=== PATIENT | female | born 1995 | race Caucasian/White ===

== ENCOUNTER → 2023-11-06 15:38 | Outpatient (CLI) | payer OTHER, SELFPAY ==
[2023-11-06 16:31] LABS: Hemoglobin A1C% w Est Avg Glu 5.3 % (4.0-6.0)
[2023-11-06 16:50] LABS: Alanine Aminotransferase 22 IU/L (<35); Albumin 4.1 g/dL (3.5-5.0); Albumin Globulin Ratio 1.2 (1.0-2.8); Alkaline Phosphatase 82 U/L (38-126); Aspartate Aminotransferase 18 IU/L (14-36); BUN Creatinine Ratio 10.5 (6-22); Bilirubin Total 0.6 mg/dL (0.2-1.3); Blood Urea Nitrogen 6 mg/dL (7-17); Carbon Dioxide 24 mmol/L (22-32); Chloride 104 mmol/L (98-107); Estimated Glomerular Filt Rate > 60 mL/min (>60); Globulin 3.3 g/dL (1.7-4.1); Glucose 88 mg/dL (70-100); HEMOLYSIS < 15 (0-50); Potassium 3.7 mmol/L (3.4-5.1); Sodium 135 mmol/L (137-145); Total Protein 7.4 g/dL (6.3-8.2)
[2023-11-06 19:21] LABS: Urine N gonorrhoeae NOT DETECTED
[2023-11-06 19:32] LABS: Urine Chlamydia NOT DETECTED
[2023-11-07 07:26] LABS: Miscellaneous to LabCorp NATERA KIT
[2023-11-07 15:57] LABS: Creatinine Urine Random 200.2 mg/dL; Protein (Total) Urine Random 11 mg/dL (0-12); Protein Creatinine Ratio Urine 0.05 GRAM/24H
== END ==
PROVIDERS: Referring Provider Student in an Organized Health Care Education/Training Program; Visit Provider Student in an Organized Health Care Education/Training Program
DX: O99.210 Obesity complicating pregnancy, unspecified trimester (principal); Z3A.09 9 weeks gestation of pregnancy
CPT/HCPCS: 36415; 80053; 82570; 83036; 84156; 87491; 87591

== ENCOUNTER → 2023-11-19 14:51 | Outpatient (CLI) | payer OTHER, SELFPAY ==
[2023-11-19 15:42] LABS: Appearance Urine UA SL CLOUDY; Bilirubin Urine UA NEGATIVE (NEGATIVE); Color Urine UA YELLOW; Glucose Urine UA NEGATIVE (Negative); Ketones Urine UA 2+ (NEGATIVE); Leukocyte Esterase Urine UA 3+ (NEGATIVE); Nitrite Urine UA NEGATIVE (Negative); Occult Blood Urine UA NEGATIVE (Negative); Protein Urine UA NEGATIVE (Negative); Urobilinogen Urine UA 0.2 E.U./dL (0.2); pH Urine UA 6.5 (4.5-8.0)
[2023-11-19 15:55] LABS: Bacteria Urine Few (2-10); RBC Urine 0-1/HPF (0-5/HPF); Squamous Epithelial Cell Urine >30 /HPF (0-5/HPF); WBC Urine 5-10/HPF (0-5/HPF)
[2023-11-19 15:56] LABS: Culture Indicated Urine Specimen Cultured
[2023-11-19 16:38] LABS: Add Manual Diff / Slide Review NO; Basophils Absolute Auto 0 /uL (0-100); Basophils Percent Auto 0.4 % (0-2); Eosinophils Absolute Auto 100 /uL (0-450); Hematocrit 40.7 % (36-46); Hemoglobin 13.6 g/dL (12.0-16.0); Lymphocytes Absolute Auto 3800 /uL (1100-4500); Lymphocytes Percent Auto 31.9 % (25-40); Mean Corpuscular HGB Conc 33.5 % (30-36); Mean Corpuscular Hemoglobin 26.3 PG (26-34); Mean Corpuscular Volume 78.5 fL (80-100); Monocytes Absolute Auto 700 /uL (0-900); Monocytes Percent Auto 6.3 % (3-14); Neutrophils Absolute Auto 7100 /uL (1500-7000); Neutrophils Percent Auto 60.4 % (50-75); Platelet Count 343 X10^3/uL (150-400); Red Blood Cell Count 5.18 X10^6/uL (4.0-5.2); Red Cell Distribution Width 14.5 % (11.6-14.8); White Blood Cell Count 11.8 X10^3/uL (4.5-11.0)
[2023-11-20 04:50] LABS: RPR Screen Non Reactive (Non Reactive)
[2023-11-21 08:36] LABS: Varicella IgG Antibody 1862 index (Immune >165)
[2023-11-21 18:59] LABS: Hepatitis B Surface Antigen NEGATIVE s/c (NEGATIVE)
[2023-11-21 19:22] LABS: HIV 1 & 2 Ab/Ag 4th Gen Combo NEGATIVE (NEGATIVE)
[2023-11-22 18:23] LABS: Hep C Virus Ab w/Reflex Quant NEGATIVE s/c (NEGATIVE)
== END ==
PROVIDERS: Referring Provider Student in an Organized Health Care Education/Training Program; Visit Provider Student in an Organized Health Care Education/Training Program
DX: Z34.00 Encounter for supervision of normal first pregnancy, unspecified trimester (principal); Z34.91 Encounter for supervision of normal pregnancy, unspecified, first trimester
CPT/HCPCS: 36415; 80055; 81001; 86787; 86803; 86850; 86900; 86901; 87086; 87389

== ENCOUNTER → 2024-01-15 13:47 | Outpatient (CLI) | payer OTHER, SELFPAY ==
[2024-01-17 22:36] LABS: AFP Value 26.1 ng/mL (.); Gest Age on Col Date 19.1 weeks (.); Insulin Dep Diabetes No (.); OSBR Risk 1IN 10000 (.); Results Report (.); Test Results *Screen Negative* (.)
== END ==
PROVIDERS: Referring Provider Student in an Organized Health Care Education/Training Program; Visit Provider Student in an Organized Health Care Education/Training Program
DX: Z34.02 Encounter for supervision of normal first pregnancy, second trimester (principal)
CPT/HCPCS: 36415; 82105

== ENCOUNTER → 2024-01-23 12:50 | Outpatient (CLI) | payer OTHER, SELFPAY ==
--- NOTE | 2024-01-23 12:51 | DI.US.S_ITS ---
PROCEDURE: US OB >= 14 WEEKS FETUS INDICATIONS: 20 week anatomy scan OUTSIDE/PRIOR DATING DATA: Last menstrual period (LMP): 09/03/2023 LMP-based estimated date of delivery (USHA): 06/09/2024. First dating scan (date and location): 11/06/2023. Estimated date of delivery (USHA) from first dating scan: 06/11/2024. The calculations are made using the clinical USHA of 06/09/2024. TECHNIQUE: Real-time scanning was performed of the fetus, with image documentation and biometric measurements. Endovaginal scanning: Not performed COMPARISON: [facility], , OB >= 14 WEEKS FETUS, 12/18/2023, 15:17. FINDINGS: General: A single living intrauterine gestation is present. Presentation: Vertex. Placenta: Placental position is anterior , without previa. Amniotic fluid index: 14.8 cm, normal range is 5-24 cm. Single deepest vertical pocket is 5.6 cm. heart rate: 130 beats per minute. Maternal cervical canal: 3.4 cm long. Normal lower limit is 2.5 cm. biometrics: Biparietal diameter: 5.1 cm, 21 weeks 2 days Head circumference: 19.7 cm, 21 weeks 6 days Abdominal circumference: 16.7 cm, 21 weeks 5 days Femur length: 3.5 cm, 21 weeks 0 days Clinically estimated gestational age: 20 weeks 2 days Composite gestational age from present scan: 21 weeks 3 days Estimated weight and percentile: 424 g, 95th percentile Anatomic survey: Neuro: Ventricles are non-dilated at less than 10 mm. Cisterna magna is normal at 3-11 mm. Cerebellum is normal in size and morphology. Nuchal skin fold: Normal at less than 6 mm between 14-21 weeks gestational age. Face: Nose and lips, facial profile are normal. Spine: No evidence for spina bifida. Heart: 4-chambered heart is present, with normal ventricular outflow tracts. Diaphragm: Diaphragm is intact. Stomach: Left-sided stomach is present. Kidneys: No hydronephrosis. Normal is less than 5 mm in 2nd trimester, less than 7 mm in 3rd trimester. Cord: 3-vessel cord has orthotopic insertion. Bladder: Normal in size. Extremities: All 4 extremities identified. IMPRESSION: 1. Single live intrauterine consistent with 21 weeks and 3 days. 2. Normal anatomic survey. 3. Estimated weight is in the 95th percentile, large for gestational age. Recommend attention on follow-up. We strive to produce accurate, complete, and clear reports of imaging services. To assist us in improving patient care, this report was composed using standard report templates and voice recognition software. Therefore, it may contain abnormal punctuation, insertions and/or omissions. Occasional wrong-word or sound-alike substitutions may occur. Though we review the report and make efforts to correct it, we do recommend that the report be read carefully in proper context to recognize any text inaccuracies. Dictated by: Jordi Pearce M.D. on 01/28/2024 at 14:15 Approved by: Jordi Pearce M.D. on 01/28/2024 at 14:18
== END ==
PROVIDERS: Referring Provider Student in an Organized Health Care Education/Training Program; Visit Provider Student in an Organized Health Care Education/Training Program
DX: Z34.02 Encounter for supervision of normal first pregnancy, second trimester (principal); Z3A.21 21 weeks gestation of pregnancy
CPT/HCPCS: 76811

== ENCOUNTER → 2024-02-21 13:50 | Outpatient (CLI) | payer OTHER, SELFPAY ==
[2024-02-21 15:42] LABS: Hematocrit 34.5 % (36-46); Hemoglobin 11.5 g/dL (12.0-16.0)
[2024-02-21 16:34] LABS: GTT (PREG) 1 Hour PP 50gm Dose 149 mg/dL (76-139)
== END ==
PROVIDERS: Referring Provider Student in an Organized Health Care Education/Training Program; Visit Provider Student in an Organized Health Care Education/Training Program
DX: Z34.02 Encounter for supervision of normal first pregnancy, second trimester (principal); Z3A.26 26 weeks gestation of pregnancy
CPT/HCPCS: 36415; 82950; 85014; 85018

== ENCOUNTER → 2024-03-12 08:02 | Outpatient (CLI) | payer OTHER, SELFPAY ==
[2024-03-12 10:40] LABS: Glucose 1 Hour Gest 156 mg/dL (76-180)
[2024-03-12 11:24] LABS: Glucose 2 Hour Gest 144 mg/dL (76-155)
[2024-03-12 11:33] LABS: Glucose Tol Interp,Gestational INTERPRETATION
[2024-03-12 11:39] LABS: Glucose Fasting Gestational 81 mg/dL (76-95)
[2024-03-12 12:17] LABS: Glucose 3 Hour Gest 88 mg/dL (76-140)
== END ==
LOC: LAB 08:03
PROVIDERS: Referring Provider Student in an Organized Health Care Education/Training Program; Visit Provider Student in an Organized Health Care Education/Training Program
DX: O99.810 Abnormal glucose complicating pregnancy (principal)
CPT/HCPCS: 82951; 82952

== ENCOUNTER → 2024-04-14 10:52 | Outpatient (CLI) | payer OTHER, SELFPAY ==
--- NOTE | 2024-04-14 10:53 | DI.US.S_ITS ---
PROCEDURE: US OB FOLLOW UP INDICATIONS: measuring size greater than dates; re-evaluate growth OUTSIDE/PRIOR DATING DATA: Last menstrual period (LMP): 09/03/2023. LMP-based estimated date of delivery (USHA): 06/09/2024. First dating scan (date and location): 11/06/2023. Estimated date of delivery (USHA) from first dating scan: 06/11/2024. The calculations are made using the clinical USHA of 06/09/2024. TECHNIQUE: Real-time scanning was performed of the fetus, with image documentation and biometric measurements. Endovaginal scanning: Not performed. COMPARISON: [facility], OB >= 14 WEEKS FETUS, 01/23/2024, 13:01. FINDINGS: General: A single living intrauterine gestation is present. Presentation: Vertex. Placenta: Placental position is anterior, without previa. Amniotic fluid index: 15.7 cm, normal range is 5-24 cm. Single deepest vertical pocket is 5.7 cm. heart rate: 128 beats per minute. Maternal cervical canal: 4.9 cm long. Normal lower limit is 2.5 cm. biometrics: Biparietal diameter: 8.5 cm, 34 weeks 2 days. 94th percentile Head circumference: 30.8 cm, 34 weeks 3 days. 76 percentile Abdominal circumference: 31.6 cm, 35 weeks 4 days. Cannot calculate. Femur length: 6.4 cm, 33 weeks 0 days. 64 percentile Clinically estimated gestational age: 32 weeks 0 days Composite gestational age from present scan: 34 weeks 2 days Estimated weight and percentile: 2466 g, 98th percentile. IMPRESSION: 1. [place] living intrauterine at 34 weeks 2 days based on today's ultrasound. Fetus is in the 98th percentile for weight. This is concordant with the prior dating +/-3 weeks. 2. Normal placenta and amniotic fluid. We strive to produce accurate, complete, and clear reports of imaging services. To assist us in improving patient care, this report was composed using standard report templates and voice recognition software. Therefore, it may contain abnormal punctuation, insertions and/or omissions. Occasional wrong-word or sound-alike substitutions may occur. Though we review the report and make efforts to correct it, we do recommend that the report be read carefully in proper context to recognize any text inaccuracies. Dictated by: Mesfin Sethi M.D. on 04/14/2024 at 14:49 Approved by: Mesfin Sethi M.D. on 04/14/2024 at 14:53
== END ==
PROVIDERS: Referring Provider Student in an Organized Health Care Education/Training Program; Visit Provider Student in an Organized Health Care Education/Training Program
DX: O26.843 Uterine size-date discrepancy, third trimester (principal); O99.213 Obesity complicating pregnancy, third trimester; Z3A.34 34 weeks gestation of pregnancy
CPT/HCPCS: 76816

== ENCOUNTER → 2024-05-11 11:14 | Outpatient (CLI) | payer OTHER, SELFPAY ==
--- NOTE | 2024-05-11 11:16 | DI.US.S_ITS ---
PROCEDURE: US OB FOLLOW UP INDICATIONS: follow-up growth at 36 weeks EGA OUTSIDE/PRIOR DATING DATA: Last menstrual period (LMP): 09/03/2023. LMP-based estimated date of delivery (USHA): 06/09/2024. First dating scan (date and location): 11/06/2023. Estimated date of delivery (USHA) from first dating scan: 06/11/2024. The calculations are made using the clinical USHA of 06/09/2024. TECHNIQUE: Real-time scanning was performed of the fetus, with image documentation. COMPARISON: [facility], OB FOLLOW UP, 04/14/2024, 11:04. FINDINGS: A single living intrauterine gestation is present. Presentation: Vertex. Placenta: Placental position is anterior, without previa. Amniotic fluid index: 11.2 cm, normal range is 5-24 cm. Single deepest vertical pocket is 4.6 cm. heart rate: 131 beats per minute. Maternal cervical canal: 4.6 cm long. Normal lower limit is 2.5 cm. Clinically estimated gestational age: 35 weeks 6 days Estimated gestational age from initial scan: 38 weeks 3 days BPD: 9.3 cm 37 weeks 6 days HC: 34 weeks 5 days 39 weeks 6 days AC: 34.5 cm 38 weeks 3 days FL: 7.4 cm 37 weeks 5 days Estimated weight 3407 2 g, 97th percentile, compared to 98th percentile.. IMPRESSION: Single live intrauterine with gestational age today of 38 weeks 3 days. weight remains at the 97th percentile consistent with macrosomia. Dictated by: Kim Colón M.D. on 05/11/2024 at 16:08 Approved by: Kim Colón M.D. on 05/11/2024 at 16:10
== END ==
PROVIDERS: Referring Provider Student in an Organized Health Care Education/Training Program; Visit Provider Student in an Organized Health Care Education/Training Program
DX: O36.63X0 Maternal care for excessive fetal growth, third trimester, not applicable or unspecified (principal); Z3A.38 38 weeks gestation of pregnancy
CPT/HCPCS: 76816

== ENCOUNTER → 2024-05-13 11:30 | Outpatient (CLI) | payer OTHER, SELFPAY ==
[2024-05-14 08:13] LABS: Strep Grp B PCR NEG for Grp B Strep
== END ==
PROVIDERS: Visit Provider Obstetrics & Gynecology
DX: Z34.03 Encounter for supervision of normal first pregnancy, third trimester (principal); Z3A.36 36 weeks gestation of pregnancy
CPT/HCPCS: 87653

== ENCOUNTER 2024-05-13 11:50 | Outpatient (CLI) | payer OTHER, SELFPAY | END 2024-05-13 12:24 | disposition home or self-care (01) | LOC: OB 05-14 08:21 | PROVIDERS: Referring Provider Student in an Organized Health Care Education/Training Program; Visit Provider Student in an Organized Health Care Education/Training Program | DX: O99.213 Obesity complicating pregnancy, third trimester (principal); O36.63X0 Maternal care for excessive fetal growth, third trimester, not applicable or unspecified; E66.9 Obesity, unspecified; O47.03 False labor before 37 completed weeks of gestation, third trimester; Z3A.35 35 weeks gestation of pregnancy | CPT/HCPCS: 59025; 87653; G0378; G0379 ==

== ENCOUNTER 2024-05-16 14:08 | Outpatient (CLI) | payer OTHER, SELFPAY | END 2024-05-16 15:10 | disposition home or self-care (01) | LOC: LABOR 15:07 → OB 05-18 06:12 | PROVIDERS: Referring Provider Student in an Organized Health Care Education/Training Program; Visit Provider Student in an Organized Health Care Education/Training Program | DX: O36.63X0 Maternal care for excessive fetal growth, third trimester, not applicable or unspecified (principal); O99.213 Obesity complicating pregnancy, third trimester; E66.9 Obesity, unspecified; Z3A.36 36 weeks gestation of pregnancy | CPT/HCPCS: 59025; G0378; G0379 ==

== ENCOUNTER 2024-05-19 11:16 | Observation (INO) | payer OTHER, SELFPAY ==
--- NOTE | 2024-05-19 14:20 | PM.OBTRLD ---
Visit Information Visit Information Date of evaluation: 05/19/24 Primary OB Provider: Martha Oliva Reason for Evaluation: Yes non-stress test Vital Signs Vital Signs: vitals in clinic were within normal limits [facility] Medical History (Updated 04/07/24 @ 17:04 by aMrtha Oliva DO) Anxiety Migraine without aura Leg fracture (~2004) Lipoma (~2019) Surgical History (Updated 10/23/23 @ 11:07 by Yulissa Rose, RN) History of tonsillectomy [place] teeth extracted Family History (Updated 10/23/23 @ 11:17 by Yulissa Rose, RN) Mother Recurrent strokes Skin cancer Heart murmur Hyperlipidemia Depression Diverticulitis Grandmother Skin cancer Breast cancer Bladder cancer Uterine cancer Lung cancer Smoker H/O carotid endarterectomy Grandfather Diabetes mellitus Colon cancer Father Hyperlipidemia Depression Anxiety Grandmother Stomach cancer Smoker Depression Anxiety Sister Congenital heart defect Grandfather Anxiety Depression Social History marital status: unmarried,living together household members: significant other lives independently: Yes caregiver/support person: No housing: apartment pets and animals: No education level: high school occupational status: employed (active duty [employer] current occupational 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 ) special diane needs: No travel history: over 6 months ago seatbelt use: always water heater temp set < 120 deg: Yes working smoke detector in home: Yes fire extinguisher in home: No (one not far from front door outside) carbon monox detector in home: Yes firearms in home: Yes firearms unloaded and locked: Yes do you feel safe at home: Yes Smoking Status: Former smoker (quit cigarettes 2020, quit vaping when she learned she was ) second hand exposure: No (s/o also quit when pt found out about ) alcohol intake: former (occasionally when not ) substance use type: does not use during the past year weight has: remained stable well-balanced diet: rarely or never daily servings fruits/ve-1 caffeine: Yes (aware of 200mg limit) Type(s) of exercise: weight lifting Evaluation Evaluation Baseline heart rate: 140 Variability: Moderate (11-25) monitor accelerations: Present Monitor Decelerations: Absent Category of Tracing: Reactive Diagnosis, Plan/Disposition Final Diagnosis (1) Obesity affecting : Status: Acute Plan/Disposition Plan: F/u in clinic as scheduled OB Disposition: home
== END 2024-05-19 12:04 | disposition home or self-care (01) ==
PROVIDERS: Admitting Provider Student in an Organized Health Care Education/Training Program; Referring Provider Student in an Organized Health Care Education/Training Program; Visit Provider Student in an Organized Health Care Education/Training Program
DX: O99.213 Obesity complicating pregnancy, third trimester (principal); E66.9 Obesity, unspecified; Z3A.37 37 weeks gestation of pregnancy
CPT/HCPCS: 59025; G0378; G0379

== ENCOUNTER → 2024-05-20 13:25 | Outpatient (CLI) | payer OTHER, SELFPAY ==
--- NOTE | 2024-05-20 13:26 | DI.US.S_ITS ---
PROCEDURE: US OB LIMITED INDICATIONS: INTERVAL GROWTH, LGA OUTSIDE/PRIOR DATING DATA: Last menstrual period (LMP): 09/03/2023. LMP-based estimated date of delivery (USHA): 06/09/2024. First dating scan (date and location): 11/06/2023. Estimated date of delivery (USHA) from first dating scan: 06/11/2024. The calculations are made using the clinical USHA of 06/09/2024. TECHNIQUE: Real-time scanning was performed of the fetus, with image documentation. COMPARISON: [facility], , OB FOLLOW UP, 05/11/2024, 11:28. FINDINGS: A single living intrauterine gestation is present. Presentation: Vertex. Placenta: Placental position is anterior fundal, without previa. Amniotic fluid index: 9.1 cm, normal range is 5-24 cm. Single deepest vertical pocket is 5.4 cm. heart rate: 124 beats per minute. Maternal cervical canal: Not assessed BPD: 9.6 cm 39 weeks 0 days HC: 34.6 cm 40 weeks 0 days AC: 39.4 cm 41 weeks 2 days FL: 7.5 cm 38 weeks 3 days Clinically estimated gestational age: 37 weeks 1 day Estimated gestational age from initial scan: 39 weeks 5 days Estimated weight 4046 g 99th percentile IMPRESSION: Single live intrauterine with gestational age of 39 weeks 5 days. weight is at the 99th percentile remaining consistent with macrosomia. Dictated by: Kim Colón M.D. on 05/20/2024 at 16:29 Approved by: Kim Colón M.D. on 05/20/2024 at 16:31
== END ==
PROVIDERS: Referring Provider Obstetrics & Gynecology; Visit Provider Obstetrics & Gynecology
DX: O26.849 Uterine size-date discrepancy, unspecified trimester (principal); Z3A.39 39 weeks gestation of pregnancy
CPT/HCPCS: 76815

== ENCOUNTER 2024-05-22 13:55 | Outpatient (CLI) | payer OTHER, SELFPAY ==
--- NOTE | 2024-05-22 14:53 | P.TNLD_ITS ---
Visit Information Visit Information Date of evaluation: 05/22/24 Primary OB Provider: Martha Oliva On-call OB Provider: Wen Mcdonald Reason for Evaluation: Yes non-stress test non-stress test reason: other (Obesity, macrosomia) Vital Signs Vital Signs: Blood pressure 119/65, pulse of 85, temperature 35.9? [facility] Medical History (Updated 05/22/24 @ 14:54 by Wen Mcdonald MD) Anxiety Migraine without aura Leg fracture (~2004) Lipoma (~2018) Surgical History (Updated 10/23/23 @ 11:07 by Yulissa Rose, RN) History of tonsillectomy [place] teeth extracted Family History (Updated 10/23/23 @ 11:17 by Yulissa Rose, RN) Mother Recurrent strokes Skin cancer Heart murmur Hyperlipidemia Depression Diverticulitis Grandmother Skin cancer Breast cancer Bladder cancer Uterine cancer Lung cancer Smoker H/O carotid endarterectomy Grandfather Diabetes mellitus Colon cancer Father Hyperlipidemia Depression Anxiety Grandmother Stomach cancer Smoker Depression Anxiety Sister Congenital heart defect Grandfather Anxiety Depression Social History marital status: unmarried,living together household members: significant other lives independently: Yes caregiver/support person: No housing: apartment pets and animals: No education level: high school occupational status: employed (active duty [employer]) current occupational 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 ) special diane needs: No travel history: over 6 months ago seatbelt use: always water heater temp set < 120 deg: Yes working smoke detector in home: Yes fire extinguisher in home: No (one not far from front door outside) carbon monox detector in home: Yes firearms in home: Yes firearms unloaded and locked: Yes do you feel safe at home: Yes Smoking Status: Former smoker (quit cigarettes 2020, quit vaping when she learned she was ) second hand exposure: No (s/o also quit when pt found out about ) alcohol intake: former (occasionally when not ) substance use type: does not use during the past year weight has: remained stable well-balanced diet: rarely or never daily servings fruits/ve-1 caffeine: Yes (aware of 200mg limit) Type(s) of exercise: weight lifting Evaluation Evaluation Baseline heart rate: 125 Variability: Moderate (11-25) monitor accelerations: Present Monitor Decelerations: Absent Category of Tracing: Reactive Status: Category l Diagnosis, Plan/Disposition Final Diagnosis (1) macrosomia during in third trimester: Status: Acute (2) 37 weeks gestation of : Status: Acute (3) Obesity affecting : Status: Acute Plan/Disposition Plan: Reactive nonstress test. Continue routine OB visits and weekly nonstress test OB Disposition: home
== END 2024-05-22 14:55 | disposition home or self-care (01) ==
LOC: LABOR 14:45 → OB 05-25 10:25
PROVIDERS: Referring Provider Student in an Organized Health Care Education/Training Program; Visit Provider Student in an Organized Health Care Education/Training Program
DX: O36.63X0 Maternal care for excessive fetal growth, third trimester, not applicable or unspecified (principal); O99.213 Obesity complicating pregnancy, third trimester; E66.9 Obesity, unspecified; Z3A.37 37 weeks gestation of pregnancy
CPT/HCPCS: 59025; G0378; G0379

== ENCOUNTER 2024-05-28 12:25 | Outpatient (CLI) | payer OTHER, SELFPAY | END 2024-05-28 13:04 | disposition home or self-care (01) | LOC: OB 06-01 06:46 | PROVIDERS: PCP Family Medicine; Referring Provider Student in an Organized Health Care Education/Training Program; Visit Provider Student in an Organized Health Care Education/Training Program | DX: O47.1 False labor at or after 37 completed weeks of gestation (principal); O36.63X0 Maternal care for excessive fetal growth, third trimester, not applicable or unspecified; Z3A.38 38 weeks gestation of pregnancy | CPT/HCPCS: 59025; G0378; G0379 ==

== ENCOUNTER 2024-06-02 11:46 | Outpatient (CLI) | payer OTHER, SELFPAY ==
--- NOTE | 2024-06-02 12:43 | PM.OBTRLD ---
Visit Information Visit Information Date of evaluation: 06/02/24 Primary OB Provider: Martha Oliva Reason for Evaluation: Yes non-stress test Vital Signs Vital Signs: vitals reviewed in OBIX, within normal parameters [facility] Medical History (Updated 05/28/24 @ 11:54 by Martha Oliva DO) Anxiety Migraine without aura Leg fracture (~2005) Lipoma (~2019) Surgical History (Updated 10/23/23 @ 11:07 by Yulissa Rose, RN) History of tonsillectomy [place] teeth extracted Family History (Updated 10/23/23 @ 11:17 by Yulissa Rose, RN) Mother Recurrent strokes Skin cancer Heart murmur Hyperlipidemia Depression Diverticulitis Grandmother Skin cancer Breast cancer Bladder cancer Uterine cancer Lung cancer Smoker H/O carotid endarterectomy Grandfather Diabetes mellitus Colon cancer Father Hyperlipidemia Depression Anxiety Grandmother Stomach cancer Smoker Depression Anxiety Sister Congenital heart defect Grandfather Anxiety Depression Social History marital status: unmarried,living together household members: significant other lives independently: Yes caregiver/support person: No housing: apartment pets and animals: No education level: high school 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 occupational 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 ) special diane needs: No travel history: over 6 months ago seatbelt use: always water heater temp set < 120 deg: Yes working smoke detector in home: Yes fire extinguisher in home: No (one not far from front door outside) carbon monox detector in home: Yes firearms in home: Yes firearms unloaded and locked: Yes do you feel safe at home: Yes Smoking Status: Former smoker (quit cigarettes 2020, quit vaping when she learned she was ) second hand exposure: No (s/o also quit when pt found out about ) alcohol intake: former (occasionally when not ) substance use type: does not use during the past year weight has: remained stable well-balanced diet: rarely or never daily servings fruits/ve-1 caffeine: Yes (aware of 200mg limit) Type(s) of exercise: weight lifting Evaluation Evaluation Baseline heart rate: 135 Variability: Moderate (11-25) monitor accelerations: Present Monitor Decelerations: Absent Category of Tracing: Reactive Cervical dilation (cm): 1 Cervical effacement (%): 25 station: -3 Diagnosis, Plan/Disposition Final Diagnosis (1) Obesity affecting : Status: Acute (2) macrosomia during in third trimester: Status: Acute Plan/Disposition Plan: Follow-up in clinic as scheduled OB Disposition: home
== END 2024-06-02 12:50 | disposition home or self-care (01) ==
LOC: LABOR 12:14 → OB 06-05 06:38
PROVIDERS: PCP Family Medicine; Referring Provider Student in an Organized Health Care Education/Training Program; Visit Provider Student in an Organized Health Care Education/Training Program
DX: O99.213 Obesity complicating pregnancy, third trimester (principal); E66.9 Obesity, unspecified; O36.63X0 Maternal care for excessive fetal growth, third trimester, not applicable or unspecified; Z3A.39 39 weeks gestation of pregnancy
CPT/HCPCS: 59025; G0378; G0379

== ENCOUNTER 2024-06-03 12:10 | Inpatient (IN) | payer OTHER, SELFPAY ==
--- NOTE | 2024-06-03 13:30 | P.HPOB_ITS ---
OB HPI Date/Time Date of admission: 06/03/24 Date Patient Seen: 06/03/24 Time Patient Seen: 13:00 History of Present Condition Chief complaint: PROM : 1 Estimated Date of Delivery: 06/09/24 Estimated Gestational Age (weeks): 39w1d Narrative: Vladimir Munoz is a 28 year old female G1 at 39w1d D=9wk US who presents to triage for evaluation of SROM prior to arrival. Pt states she first appreciated a gush and then steady trickle of clear fluid starting at 0915. She has felt intermittent cramping dheeraj to menses since then but no distinct contractions. +FM, denies VB. 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 Elevated 1h OGTT, all 3h OGTT values wnl, baseline A1c 5.3, total weight gain 14# for entire . History of Present care: good care Dating criteria: LMP confirmed by 1st trimester US Ultrasounds: normal 1st trimester US Abnormal ultrasound findings: 37wga growth US: EFW 4046g, 99th% Obstetrical complications: other ( macrosomia) Medical complications: other (class 3 maternal obesity; h/o maternal mood disorder (depression/anxiety) stable without medication ) Preadmission Labs Blood type: O (+) positive -: Antibody screen: negative, Cystic fibrosis screen: negative, GBS status: negative, HBsAG: negative, HIV: negative and RPR/VDLR: negative -: Chlamydia screen: not detected and Gonorrhea screen: not detected -: Rubella: immune Cell-free DNA: low-risk XY, MS-AFP screen negative 1 hr GTT: 149 3 hr GTT: 1 hr (156), 2 hr (144) and 3 hr (88) Fasting blood glucose: 81 Evaluation Evaluation Baseline heart rate: 135 Variability: Moderate (11-25) monitor accelerations: Present Monitor Decelerations: Absent Contraction Frequency (minutes): 3 Uterine Contraction Intensity: Mild Category of Tracing: Reactive Status: Category l Dilation (cm): 1 Effacement (%): 0 Dilation: 1-2 cm Effacement: 0-30% station: -4 Position of cervix: posterior Consistency: firm Sharpe score: 1 Non-invasive Membranes Rupture Test: positive Comments: gross rupture clear fluid PFSH Medical History (Updated 05/28/24 @ 11:54 by Martha Oliva DO) Anxiety Migraine without aura Leg fracture (~2004) Lipoma (~2018) Surgical History (Updated 10/23/23 @ 11:07 by Yulissa Rose, RN) History of tonsillectomy [place] teeth extracted Family History (Updated 10/23/23 @ 11:17 by Yulissa Rose, RN) Mother Recurrent strokes Skin cancer Heart murmur Hyperlipidemia Depression Diverticulitis Grandmother Skin cancer Breast cancer Bladder cancer Uterine cancer Lung cancer Smoker H/O carotid endarterectomy Grandfather Diabetes mellitus Colon cancer Father Hyperlipidemia Depression Anxiety Grandmother Stomach cancer Smoker Depression Anxiety Sister Congenital heart defect Grandfather Anxiety Depression Social History marital status: unmarried,living together household members: significant other lives independently: Yes caregiver/support person: No housing: apartment pets and animals: No education level: high school 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 occupational 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 ) special diane needs: No travel history: over 6 months ago seatbelt use: always water heater temp set < 120 deg: Yes working smoke detector in home: Yes fire extinguisher in home: No (one not far from front door outside) carbon monox detector in home: Yes firearms in home: Yes firearms unloaded and locked: Yes do you feel safe at home: Yes Smoking Status: Former smoker second hand exposure: No (s/o also quit when pt found out about ) alcohol intake: former (occasionally when not ) substance use type: does not use during the past year weight has: remained stable well-balanced diet: rarely or never daily servings fruits/ve-1 caffeine: Yes (aware of 200mg limit) Type(s) of exercise: weight lifting Meds Home Medications and Allergies Home Medications Medication Instructions Recorded Confirmed Type calcium carbonate (Calcium 600) 600 mg PO DAILY 10/23/23 06/03/24 History ferrous sulfate 325 mg (65 mg 325 mg PO DAILY 10/23/23 06/03/24 History iron) tablet (Feosol) vit no.95-ferrous 1 tab PO DAILY 10/23/23 06/03/24 History fumarate 28 mg-folic acid 800 mcg tablet ( Multivitamins) aspirin 81 mg tablet,delayed 81 mg PO DAILY #90 tabs 11/06/23 06/03/24 Rx release docusate sodium 100 mg capsule 100 mg PO DAILY #90 caps 11/06/23 06/03/24 Rx (Colace) Double Electric Breast Pump #1 ea 03/17/24 06/03/24 Rx Allergies Allergy/AdvReac Type Severity Reaction Status Date / Time No Known Drug Allergies Allergy Unverified 05/28/24 11:30 Review of Systems Review of Systems ROS: Yes All systems reviewed with the patient and are negative except as otherwise documented OB Exam Vital signs Blood Pressure: 128/80 Pulse Rate: 76 Respiratory Rate: 18 Temperature: 97.2 F HENMT Head: normal to inspection Mouth: oral mucosae normal and moist mucous membranes Resp Effort & Inspection: normal respiratory effort Cardio Rate: regular rate Extremities Lower extremity: Yes normal to inspection and edema (+1) Laterality: bilateral GI Inspection: no large pannus and obesity Palpation: Yes soft Other: saul cephalic 8-9# External Female Exam: Yes normal external appearance Presentation: vertex Amniotic Fluid: clear Objective Labs 06/03/24 13:35 06/03/24 13:35 Assessment and Plan Assessment and Plan Assessment and Plan narrative: 28yo G1 at 39w1d D=9wk US presents in early latent labor following confirmed SROM at 0915 SROM, early latent labor Pt counseled on and in agreement with recommendation to ambulate/encourage spontaneous labor, augment in 2-4h if not in adequate pattern at that time Reactive Cat 1 tracing, ok for intermittent monitoring --> start CEFM with pitocin per protocol minimize SVE, GBS neg --> anticipate starting abx in AM/shift change (18h post- SROM) if undelivered per protocol macrosomia As per HPI Pt and partner counseled on increased risk of dysfunctional labor/cephalopelvic disproportion, second stage arrest, shoulder dystocia, consideration of primary . Patient was scheduled for interval growth scan tomorrow, reviewed limited utility at this time given advancing gestational age with increased margin of error that is likely further exacerbated by SROM. In shared decision making model as patient and partner strongly desire all reasonable attempts to achieve a vaginal delivery, will plan to proceed with expectant management in anticipation of vaginal delivery, low threshold to convert to delivery pending clinical course or pt request new mild range BP noted on admission, non-sustained PIH labs wnl, asymptomatic continue to monitor h/o maternal mood disorder stable throughout without medication high risk depression, anticipate 2wk TH/RN mood check Patient is consented for vaginal, vaginal operative and delivery as well as transfusions of blood products as medically indicated. Time-Based Coding :: [45] spent with patient and on the chart (including review of chart, obtaining history, exam, reviewing outside data, placing orders, documenting exam and treatment plan, and counseling patient) on [06/03/24].
[2024-06-03 13:54] LABS: Add Manual Diff / Slide Review NO; Basophils Absolute Auto 0 /uL (0-100); Basophils Percent Auto 0.3 % (0-2); Eosinophils Absolute Auto 100 /uL (0-450); Eosinophils Percent Auto 0.5 % (2-4); Hematocrit 36.1 % (36-46); Lymphocytes Absolute Auto 3300 /uL (1100-4500); Lymphocytes Percent Auto 23.5 % (25-40); Mean Corpuscular HGB Conc 33.1 % (30-36); Mean Corpuscular Hemoglobin 26.8 PG (26-34); Mean Corpuscular Volume 81.1 fL (80-100); Monocytes Absolute Auto 1000 /uL (0-900); Monocytes Percent Auto 6.9 % (3-14); Neutrophils Absolute Auto 9800 /uL (1500-7000); Neutrophils Percent Auto 68.8 % (50-75); Platelet Count 256 X10^3/uL (150-400); Red Blood Cell Count 4.45 X10^6/uL (4.0-5.2); Red Cell Distribution Width 14.5 % (11.6-14.8); White Blood Cell Count 14.2 X10^3/uL (4.5-11.0)
[2024-06-03 14:02] LABS: Add Manual Diff / Slide Review NO; Basophils Absolute Auto 100 /uL (0-100); Basophils Percent Auto 0.4 % (0-2); Eosinophils Absolute Auto 100 /uL (0-450); Eosinophils Percent Auto 0.6 % (2-4); Hematocrit 36.5 % (36-46); Hemoglobin 11.9 g/dL (12.0-16.0); Lymphocytes Absolute Auto 3400 /uL (1100-4500); Lymphocytes Percent Auto 23.8 % (25-40); Mean Corpuscular HGB Conc 32.7 % (30-36); Mean Corpuscular Hemoglobin 26.7 PG (26-34); Mean Corpuscular Volume 81.6 fL (80-100); Monocytes Absolute Auto 1000 /uL (0-900); Monocytes Percent Auto 6.7 % (3-14); Neutrophils Absolute Auto 9800 /uL (1500-7000); Neutrophils Percent Auto 68.5 % (50-75); Platelet Count 252 X10^3/uL (150-400); Red Blood Cell Count 4.47 X10^6/uL (4.0-5.2); Red Cell Distribution Width 14.4 % (11.6-14.8); White Blood Cell Count 14.3 X10^3/uL (4.5-11.0)
[2024-06-03 14:09] LABS: Alanine Aminotransferase 11 IU/L (<35); Albumin 3.7 g/dL (3.5-5.0); Albumin Globulin Ratio 1.2 (1.0-2.8); Alkaline Phosphatase 151 U/L (38-126); Aspartate Aminotransferase 20 IU/L (14-36); Aspartate Aminotransferase 26 IU/L (14-36); BUN Creatinine Ratio 12.1 (6-22); Bilirubin Total 0.5 mg/dL (0.2-1.3); Blood Urea Nitrogen 7 mg/dL (7-17); Calcium 9.2 mg/dL (8.4-10.2); Carbon Dioxide 19 mmol/L (22-32); Chloride 109 mmol/L (98-107); Estimated Glomerular Filt Rate > 60 mL/min (>60); Globulin 3.2 g/dL (1.7-4.1); Glucose 76 mg/dL (70-100); HEMOLYSIS 25 (0-50); Potassium 3.9 mmol/L (3.4-5.1); Sodium 135 mmol/L (137-145); Total Protein 6.9 g/dL (6.3-8.2); Uric Acid 6.2 mg/dL (2.5-6.2)
[2024-06-03] MEDS: LACTATED RINGERS 1,000 ML 100 ML IV (16:12)
[2024-06-03] MEDS: OXYTOCIN PREMIX 30 UNIT/500 ML PLAST..BAG IV (16:12)
[2024-06-03 18:51] VITALS: BP 136/84
[2024-06-03 20:42] VITALS: BP 128/80; PULSE 76; RESP 18; TEMP 36.2
[2024-06-03] MEDS: CALCIUM CARBONATE 500 MG TAB 1000 MG PO (22:59)
[2024-06-04] MEDS: LACTATED RINGERS 1,000 ML 100 ML IV (01:37)
--- NOTE | 2024-06-04 02:43 | P.PCN_ITS ---
Regional Block Pre-procedure Procedure: Continuous Lumbar Epidural for L&D Attending OB provider: Yael Swift PMH/ROS narrative: Vladimir Munoz is a 28 year old female G1 at 39w1d D=9wk US who presents to triage for evaluation of SROM prior to arrival. Pt states she first appreciated a gush and then steady trickle of clear fluid starting at 0915. She has felt intermittent cramping dheeraj to menses since then but no distinct contractions. +FM, denies VB. 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 Elevated 1h OGTT, all 3h OGTT values wnl, baseline A1c 5.3, total weight gain 14# for entire . bmi 43.8 PSH/Anesthesia history narrative: no prior anesthetic problems Exam narrative: obese gravid female, landmarks on spine favorable ASA Class: III Labs: Hct 36.1 % (36-46) 06/03/24 13:35 Hct 36.5 % (36-46) 06/03/24 13:35 Plt Count 252 X10^3/uL (150-400) 06/03/24 13:35 Plt Count 256 X10^3/uL (150-400) 06/03/24 13:35 Medications: Current Medications Generic Name Dose Route Start Last Admin Trade Name Freq PRN Reason Stop Dose Admin Carboprost Tromethamine 250 mcg 06/03/24 13:26 Carboprost 250 Mcg/Ml Ampul IM Q90M PRN Bleeding Lactated Ringer's 1,000 mls @ 100 mls/hr 06/03/24 13:30 06/04/24 01:37 Lactated Ringers IV 100 mls/hr CONT BETY Administration Oxytocin/Lactated Ringer's 30 unit in 500 mls @ 200 mls/hr 06/03/24 13:26 Oxytocin Premix IV CONT PRN Bleeding Protocol Tranexamic Acid 1,000 mg/ 100 mls @ 600 mls/hr 06/03/24 13:26 Sodium Chloride IV NOW PRN Bleeding Oxytocin/Lactated Ringer's 30 unit in 500 mls @ 2 mls/hr 06/03/24 13:30 06/03/24 16:12 Oxytocin Premix IV 2 milliunit/min TITRATE BETY 2 mls/hr Administration Protocol 2 MILLIUNIT/MIN Lidocaine HCl 20 ml 06/03/24 13:26 Lidocaine 1% 20 Ml INJ INTRA-OP PRN Post Delivery Methylergonovine Maleate 0.2 mg 06/03/24 13:26 Methylergonovine 0.2 Mg Tablet PO Q6HR PRN Heavy Bleeding Methylergonovine Maleate 0.2 mg 06/03/24 13:26 Methylergonovine 0.2 Mg/Ml Vial IM NOW PRN Bleeding Mineral Oil 30 ml 06/03/24 13:26 Mineral Oil 30 Ml Udc TOP PRN PRN Version Misoprostol 800 mcg 06/03/24 13:26 Misoprostol 200 Mcg Tablet ME NOW PRN Bleeding Misoprostol 400 mcg 06/03/24 13:26 Misoprostol 200 Mcg Tablet SL NOW PRN Bleeding Naloxone HCl 0.2 mg 06/03/24 13:26 Naloxone 0.4 Mg/Ml Vial IV Q2MIN PRN Opiate Reversal Ondansetron HCl 4 mg 06/03/24 13:26 Ondansetron 4 Mg/2 Ml Inj IV Q4HR PRN Nausea And Vomiting Oxytocin 10 unit 06/03/24 13:26 Oxytocin 10 Unit/Ml Vial IM NOW PRN Bleeding Allergies: Allergies Allergy/AdvReac Type Severity Reaction Status Date / Time No Known Drug Allergies Allergy Unverified 05/28/24 11:30 Procedure Insertion date: 06/04/24 Insertion time: 01:59 Prep/Local: betadine x3 Patient position: sitting Needle: 18 gauge Hustead Loss of resistance with: saline MELANIE at (cm): 7 Catheter placed at SKIN (cm): 18 Catheter in SPACE (cm): 11 Sensory level: T8 Insertion: No CSF, No Blood, No Paresthesia with insertion, No Paresthesia with injection and No Test dose reaction Initial Medications TEST DOSE time: 02:05 TEST DOSE: 1.5% lidocaine with epinephrine 1:200k (mL): 4 BOLUS DOSE time: 02:05 BOLUS DOSE (mL): 159 BOLUS DOSE med: other (2% lidocaine 8ml directly through epidural needle) Infusion INFUSION: 0.083% bupivacaine and with fentanyl 2 mcg/mL Initial rate (mL/hr): 10 Post-procedure Anesthesia date START: 06/04/24 Anesthesia time START: 01:46 Post-procedure Anesthesia Assessment: Yes CV function: HR/BP stable, Yes Resp fu nction: RR/sat/airway adequate, Yes Post-op hydration adequate, Yes Pain control adequate, Yes Nausea & vomiting absent, Yes Temperature > 36 C and Yes Mental status appropriate
[2024-06-04] MEDS: LACTATED RINGERS 1,000 ML 1000 ML IV (04:30)
--- NOTE | 2024-06-04 04:30 | P.PN_ITS ---
Subjective Subjective Date Patient Seen: 06/04/24 Time Patient Seen: 04:31 Exam Vital Signs (past 8 hours): - 06/03/24 20:42 Temperature 97.2 F L Pulse Rate 76 Respiratory Rate 18 Blood Pressure 128/80 Narrative Exam Narrative: pt c/o pain during contractions down low in pelvis. 6cm dilated....comfortable in between. Const General: cooperative Objective Labs 06/03/24 13:35 06/03/24 13:35 Labs: Laboratory Results - last 24 hr 06/03/24 06/03/24 06/03/24 13:35 13:35 13:35 WBC 14.2 H 14.3 H RBC 4.45 4.47 Hgb 12.0 Hct MCV MCH MCHC RDW Plt Count Neut % (Auto) Lymph % (Auto) [place] % (Auto) Eos % (Auto) Baso % (Auto) Neut # (Auto) Lymph # (Auto) [place] # (Auto) Eos # (Auto) Baso # (Auto) Sodium Potassium Chloride Carbon Dioxide BUN Creatinine Estimated GFR BUN/Creatinine Ratio Glucose Uric Acid Calcium Total Bilirubin AST ALT Alkaline Phosphatase Total Protein Albumin Globulin Albumin/Globulin Ratio Blood Type Antibody Screen 06/03/24 06/03/24 06/03/24 13:35 13:35 13:35 WBC RBC Hgb 11.9 L Hct 36.1 36.5 MCV 81.1 81.6 MCH 26.8 MCHC RDW Plt Count Neut % (Auto) Lymph % (Auto) [place] % (Auto) Eos % (Auto) Baso % (Auto) Neut # (Auto) Lymph # (Auto) [place] # (Auto) Eos # (Auto) Baso # (Auto) Sodium Potassium Chloride Carbon Dioxide BUN Creatinine Estimated GFR BUN/Creatinine Ratio Glucose Uric Acid Calcium Total Bilirubin AST ALT Alkaline Phosphatase Total Protein Albumin Globulin Albumin/Globulin Ratio Blood Type Antibody Screen 06/03/24 06/03/24 06/03/24 13:35 13:35 13:35 WBC RBC Hgb Hct MCV MCH 26.7 MCHC 33.1 32.7 RDW 14.5 14.4 Plt Count 256 Neut % (Auto) Lymph % (Auto) [place] % (Auto) Eos % (Auto) Baso % (Auto) Neut # (Auto) Lymph # (Auto) [place] # (Auto) Eos # (Auto) Baso # (Auto) Sodium Potassium Chloride Carbon Dioxide BUN Creatinine Estimated GFR BUN/Creatinine Ratio Glucose Uric Acid Calcium Total Bilirubin AST ALT Alkaline Phosphatase Total Protein Albumin Globulin Albumin/Globulin Ratio Blood Type Antibody Screen 06/03/24 06/03/24 06/03/24 13:35 13:35 13:35 WBC RBC Hgb Hct MCV MCH MCHC RDW Plt Count 252 Neut % (Auto) 68.8 68.5 Lymph % (Auto) 23.5 L 23.8 L [place] % (Auto) 6.9 Eos % (Auto) Baso % (Auto) Neut # (Auto) Lymph # (Auto) [place] # (Auto) Eos # (Auto) Baso # (Auto) Sodium Potassium Chloride Carbon Dioxide BUN Creatinine Estimated GFR BUN/Creatinine Ratio Glucose Uric Acid Calcium Total Bilirubin AST ALT Alkaline Phosphatase Total Protein Albumin Globulin Albumin/Globulin Ratio Blood Type Antibody Screen 06/03/24 06/03/24 06/03/24 13:35 13:35 13:35 WBC RBC Hgb Hct MCV MCH MCHC RDW Plt Count Neut % (Auto) Lymph % (Auto) [place] % (Auto) 6.7 Eos % (Auto) 0.5 L 0.6 L Baso % (Auto) 0.3 0.4 Neut # (Auto) 9800 H Lymph # (Auto) [place] # (Auto) Eos # (Auto) Baso # (Auto) Sodium Potassium Chloride Carbon Dioxide BUN Creatinine Estimated GFR BUN/Creatinine Ratio Glucose Uric Acid Calcium Total Bilirubin AST ALT Alkaline Phosphatase Total Protein Albumin Globulin Albumin/Globulin Ratio Blood Type Antibody Screen 06/03/24 06/03/24 06/03/24 13:35 13:35 13:35 WBC RBC Hgb Hct MCV MCH MCHC RDW Plt Count Neut % (Auto) Lymph % (Auto) [place] % (Auto) Eos % (Auto) Baso % (Auto) Neut # (Auto) 9800 H Lymph # (Auto) 3300 3400 [place] # (Auto) 1000 H 1000 H Eos # (Auto) 100 Baso # (Auto) Sodium Potassium Chloride Carbon Dioxide BUN Creatinine Estimated GFR BUN/Creatinine Ratio Glucose Uric Acid Calcium Total Bilirubin AST ALT Alkaline Phosphatase Total Protein Albumin Globulin Albumin/Globulin Ratio Blood Type Antibody Screen 06/03/24 06/03/24 06/03/24 13:35 13:35 13:35 WBC RBC Hgb Hct MCV MCH MCHC RDW Plt Count Neut % (Auto) Lymph % (Auto) [place] % (Auto) Eos % (Auto) Baso % (Auto) Neut # (Auto) Lymph # (Auto) [place] # (Auto) Eos # (Auto) 100 Baso # (Auto) 0 100 Sodium 135 L Potassium 3.9 Chloride 109 H Carbon Dioxide 19 L BUN 7 7 Creatinine 0.58 Estimated GFR BUN/Creatinine Ratio Glucose Uric Acid Calcium Total Bilirubin AST ALT Alkaline Phosphatase Total Protein Albumin Globulin Albumin/Globulin Ratio Blood Type Antibody Screen 06/03/24 06/03/24 06/03/24 13:35 13:35 13:35 WBC RBC Hgb Hct MCV MCH MCHC RDW Plt Count Neut % (Auto) Lymph % (Auto) [place] % (Auto) Eos % (Auto) Baso % (Auto) Neut # (Auto) Lymph # (Auto) [place] # (Auto) Eos # (Auto) Baso # (Auto) Sodium Potassium Chloride Carbon Dioxide BUN Creatinine 0.58 Estimated GFR > 60 > 60 BUN/Creatinine Ratio 12.1 12.1 Glucose 76 Uric Acid 6.2 Calcium 9.2 Total Bilirubin 0.5 AST 20 ALT Alkaline Phosphatase Total Protein Albumin Globulin Albumin/Globulin Ratio Blood Type Antibody Screen 06/03/24 13:35 WBC RBC Hgb Hct MCV MCH MCHC RDW Plt Count Neut % (Auto) Lymph % (Auto) [place] % (Auto) Eos % (Auto) Baso % (Auto) Neut # (Auto) Lymph # (Auto) [place] # (Auto) Eos # (Auto) Baso # (Auto) Sodium Potassium Chloride Carbon Dioxide BUN Creatinine Estimated GFR BUN/Creatinine Ratio Glucose Uric Acid Calcium Total Bilirubin AST 26 ALT 11 Alkaline Phosphatase 151 H Total Protein 6.9 Albumin 3.7 Globulin 3.2 Albumin/Globulin Ratio 1.2 Blood Type O Positive Antibody Screen Negative [facility] Medical History (Updated 05/28/24 @ 11:54 by Martha Oliva DO) Anxiety Migraine without aura Leg fracture (~2004) Lipoma (~2019) Surgical History (Updated 10/23/23 @ 11:07 by Yulissa Rose, JAIDA) History of tonsillectomy [place] teeth extracted Family History (Updated 10/23/23 @ 11:17 by Yulissa Rose, JAIDA) Mother Recurrent strokes Skin cancer Heart murmur Hyperlipidemia Depression Diverticulitis Grandmother Skin cancer Breast cancer Bladder cancer Uterine cancer Lung cancer Smoker H/O carotid endarterectomy Grandfather Diabetes mellitus Colon cancer Father Hyperlipidemia Depression Anxiety Grandmother Stomach cancer Smoker Depression Anxiety Sister Congenital heart defect Grandfather Anxiety Depression Social History marital status: unmarried,living together household members: significant other lives independently: Yes caregiver/support person: No housing: apartment pets and animals: No education level: high school occupational status: employed (active duty [employer]) current occupational 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 ) special diane needs: No travel history: over 6 months ago seatbelt use: always water heater temp set < 120 deg: Yes working smoke detector in home: Yes fire extinguisher in home: No (one not far from front door outside) carbon monox detector in home: Yes firearms in home: Yes firearms unloaded and locked: Yes do you feel safe at home: Yes Smoking Status: Former smoker second hand exposure: No (s/o also quit when pt found out about ) alcohol intake: former (occasionally when not ) substance use type: does not use during the past year weight has: remained stable well-balanced diet: rarely or never daily servings fruits/ve-1 caffeine: Yes (aware of 200mg limit) Type(s) of exercise: weight lifting Assessment & Plan Assessment & Plan narrative: topped up with 10ml .25% bupivacaine and 5ml 2% lidocaine....following contractions showed improved pain Time-Based Coding :: [TOTAL MINUTES] spent with patient and on the chart (including review of chart, obtaining history, exam, reviewing outside data, placing orders, documenting exam and treatment plan, and counseling patient) on [DATE].
--- NOTE | 2024-06-04 06:36 | PM.PN.1 ---
Subjective Subjective Date Patient Seen: 06/04/24 Time Patient Seen: 06:36 Interval history: pt continues to complain of low pelvic and upper rear leg pain....analgesia in front is good. Boluses only help for a short while. I decided with the patient to replace the catheter, with an identical insertion procedue to the original one, but one to two vertebral levels lower. Objective Labs 06/03/24 13:35 06/03/24 13:35 Labs: Laboratory Results - last 24 hr 06/03/24 06/03/24 06/03/24 13:35 13:35 13:35 WBC 14.2 H 14.3 H RBC 4.45 4.47 Hgb 12.0 Hct MCV MCH MCHC RDW Plt Count Neut % (Auto) Lymph % (Auto) [place] % (Auto) Eos % (Auto) Baso % (Auto) Neut # (Auto) Lymph # (Auto) [place] # (Auto) Eos # (Auto) Baso # (Auto) Sodium Potassium Chloride Carbon Dioxide BUN Creatinine Estimated GFR BUN/Creatinine Ratio Glucose Uric Acid Calcium Total Bilirubin AST ALT Alkaline Phosphatase Total Protein Albumin Globulin Albumin/Globulin Ratio Blood Type Antibody Screen 06/03/24 06/03/24 06/03/24 13:35 13:35 13:35 WBC RBC Hgb 11.9 L Hct 36.1 36.5 MCV 81.1 81.6 MCH 26.8 MCHC RDW Plt Count Neut % (Auto) Lymph % (Auto) [place] % (Auto) Eos % (Auto) Baso % (Auto) Neut # (Auto) Lymph # (Auto) [place] # (Auto) Eos # (Auto) Baso # (Auto) Sodium Potassium Chloride Carbon Dioxide BUN Creatinine Estimated GFR BUN/Creatinine Ratio Glucose Uric Acid Calcium Total Bilirubin AST ALT Alkaline Phosphatase Total Protein Albumin Globulin Albumin/Globulin Ratio Blood Type Antibody Screen 06/03/24 06/03/24 06/03/24 13:35 13:35 13:35 WBC RBC Hgb Hct MCV MCH 26.7 MCHC 33.1 32.7 RDW 14.5 14.4 Plt Count 256 Neut % (Auto) Lymph % (Auto) [place] % (Auto) Eos % (Auto) Baso % (Auto) Neut # (Auto) Lymph # (Auto) [place] # (Auto) Eos # (Auto) Baso # (Auto) Sodium Potassium Chloride Carbon Dioxide BUN Creatinine Estimated GFR BUN/Creatinine Ratio Glucose Uric Acid Calcium Total Bilirubin AST ALT Alkaline Phosphatase Total Protein Albumin Globulin Albumin/Globulin Ratio Blood Type Antibody Screen 06/03/24 06/03/24 06/03/24 13:35 13:35 13:35 WBC RBC Hgb Hct MCV MCH MCHC RDW Plt Count 252 Neut % (Auto) 68.8 68.5 Lymph % (Auto) 23.5 L 23.8 L [place] % (Auto) 6.9 Eos % (Auto) Baso % (Auto) Neut # (Auto) Lymph # (Auto) [place] # (Auto) Eos # (Auto) Baso # (Auto) Sodium Potassium Chloride Carbon Dioxide BUN Creatinine Estimated GFR BUN/Creatinine Ratio Glucose Uric Acid Calcium Total Bilirubin AST ALT Alkaline Phosphatase Total Protein Albumin Globulin Albumin/Globulin Ratio Blood Type Antibody Screen 06/03/24 06/03/24 06/03/24 13:35 13:35 13:35 WBC RBC Hgb Hct MCV MCH MCHC RDW Plt Count Neut % (Auto) Lymph % (Auto) [place] % (Auto) 6.7 Eos % (Auto) 0.5 L 0.6 L Baso % (Auto) 0.3 0.4 Neut # (Auto) 9800 H Lymph # (Auto) [place] # (Auto) Eos # (Auto) Baso # (Auto) Sodium Potassium Chloride Carbon Dioxide BUN Creatinine Estimated GFR BUN/Creatinine Ratio Glucose Uric Acid Calcium Total Bilirubin AST ALT Alkaline Phosphatase Total Protein Albumin Globulin Albumin/Globulin Ratio Blood Type Antibody Screen 06/03/24 06/03/24 06/03/24 13:35 13:35 13:35 WBC RBC Hgb Hct MCV MCH MCHC RDW Plt Count Neut % (Auto) Lymph % (Auto) [place] % (Auto) Eos % (Auto) Baso % (Auto) Neut # (Auto) 9800 H Lymph # (Auto) 3300 3400 [place] # (Auto) 1000 H 1000 H Eos # (Auto) 100 Baso # (Auto) Sodium Potassium Chloride Carbon Dioxide BUN Creatinine Estimated GFR BUN/Creatinine Ratio Glucose Uric Acid Calcium Total Bilirubin AST ALT Alkaline Phosphatase Total Protein Albumin Globulin Albumin/Globulin Ratio Blood Type Antibody Screen 06/03/24 06/03/24 06/03/24 13:35 13:35 13:35 WBC RBC Hgb Hct MCV MCH MCHC RDW Plt Count Neut % (Auto) Lymph % (Auto) [place] % (Auto) Eos % (Auto) Baso % (Auto) Neut # (Auto) Lymph # (Auto) [place] # (Auto) Eos # (Auto) 100 Baso # (Auto) 0 100 Sodium 135 L Potassium 3.9 Chloride 109 H Carbon Dioxide 19 L BUN 7 7 Creatinine 0.58 Estimated GFR BUN/Creatinine Ratio Glucose Uric Acid Calcium Total Bilirubin AST ALT Alkaline Phosphatase Total Protein Albumin Globulin Albumin/Globulin Ratio Blood Type Antibody Screen 06/03/24 06/03/24 06/03/24 13:35 13:35 13:35 WBC RBC Hgb Hct MCV MCH MCHC RDW Plt Count Neut % (Auto) Lymph % (Auto) [place] % (Auto) Eos % (Auto) Baso % (Auto) Neut # (Auto) Lymph # (Auto) [place] # (Auto) Eos # (Auto) Baso # (Auto) Sodium Potassium Chloride Carbon Dioxide BUN Creatinine 0.58 Estimated GFR > 60 > 60 BUN/Creatinine Ratio 12.1 12.1 Glucose 76 Uric Acid 6.2 Calcium 9.2 Total Bilirubin 0.5 AST 20 ALT Alkaline Phosphatase Total Protein Albumin Globulin Albumin/Globulin Ratio Blood Type Antibody Screen 06/03/24 13:35 WBC RBC Hgb Hct MCV MCH MCHC RDW Plt Count Neut % (Auto) Lymph % (Auto) [place] % (Auto) Eos % (Auto) Baso % (Auto) Neut # (Auto) Lymph # (Auto) [place] # (Auto) Eos # (Auto) Baso # (Auto) Sodium Potassium Chloride Carbon Dioxide BUN Creatinine Estimated GFR BUN/Creatinine Ratio Glucose Uric Acid Calcium Total Bilirubin AST 26 ALT 11 Alkaline Phosphatase 151 H Total Protein 6.9 Albumin 3.7 Globulin 3.2 Albumin/Globulin Ratio 1.2 Blood Type O Positive Antibody Screen Negative [facility] Medical History (Updated 05/28/24 @ 11:54 by Martha Oliva DO) Anxiety Migraine without aura Leg fracture (~2004) Lipoma (~2019) Surgical History (Updated 10/23/23 @ 11:07 by Yulissa Rose RN) History of tonsillectomy [place] teeth extracted Family History (Updated 10/23/23 @ 11:17 by Yulissa Rose, JAIDA) Mother Recurrent strokes Skin cancer Heart murmur Hyperlipidemia Depression Diverticulitis Grandmother Skin cancer Breast cancer Bladder cancer Uterine cancer Lung cancer Smoker H/O carotid endarterectomy Grandfather Diabetes mellitus Colon cancer Father Hyperlipidemia Depression Anxiety Grandmother Stomach cancer Smoker Depression Anxiety Sister Congenital heart defect Grandfather Anxiety Depression Social History marital status: unmarried,living together household members: significant other lives independently: Yes caregiver/support person: No housing: apartment pets and animals: No education level: high school occupational status: employed (active duty [employer]) current occupational 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 ) special diane needs: No travel history: over 6 months ago seatbelt use: always water heater temp set < 120 deg: Yes working smoke detector in home: Yes fire extinguisher in home: No (one not far from front door outside) carbon monox detector in home: Yes firearms in home: Yes firearms unloaded and locked: Yes do you feel safe at home: Yes Smoking Status: Former smoker second hand exposure: No (s/o also quit when pt found out about ) alcohol intake: former (occasionally when not ) substance use type: does not use during the past year weight has: remained stable well-balanced diet: rarely or never daily servings fruits/ve-1 caffeine: Yes (aware of 200mg limit) Type(s) of exercise: weight lifting Assessment & Plan Assessment & Plan narrative: The original epidural catheter insertion in this patient with a bmi of 44 was surprisingly easy; her analgesia, however left her lower pelvis and the backs of her legs painful. the initial boluses were very effective. upon removing the catheter, it was not kinked or bent. the original catheter depth was about 11cm at ? L2-3. I replaced the catheter lower at approximately L3-4 and the second insertion was also straightforward. she continues to receive 13ml/hr of our standard .125% solution with fentanyl. She understands that this is our best option and will hopefully improve her analgesia. Plan is to continue with continuous epidural infusion at this rate with PCEA and see what the Obstetricians assessment of her pelvic anatomy is. The HR tracings have fortunately been good throughout. And the patient has been very understanding. Time-Based Coding :: [TOTAL MINUTES] spent with patient and on the chart (including review of chart, obtaining history, exam, reviewing outside data, placing orders, documenting exam and treatment plan, and counseling patient) on [DATE].
[2024-06-04] MEDS: FENT 2MCG/ML BUPIV 0.125% EPI 200 MCG/100 ML PLAST..BAG 10 MCG EPIDURAL (06:43)
--- NOTE | 2024-06-04 06:58 | PM.OBPNLAB ---
<Albert Sharif MD - Last Filed: 06/04/24 07:01> Date/Time Date Patient Seen: 06/04/24 Time Patient Seen: 06:50 Pain Control Pain control: epidural Comments: Called per RN [id number] with change in CEFM, new repetitive late decelerations with leah 80 and recovery to 150bpm with adequate variability. Anesthesia bedside to assess epidural secondary to inadequate analgesia, last SVE 8/C/+1. MD presented to bedside 0648, noted stable FHR 145bpm, now s/p replacement of epidural per anes at slightly lower level with immediate improvement in analgesia. Provider SVE 7-8cm/C/-1, forebag ruptured clear fluid. Pitocin OFF since approx 2200. Pelvic Exam Dilation (cm): 7.5 Effacement (%): 0 station: -1 Amniotic membrane status: Ruptured Contractions Contractions on admission: regular Monitor mode: External Pitocin rate (mU/min): 0 Contraction frequency (min): 3 Contraction pattern: Regular Contraction intensity: Strong/Firm Status status: Category ll Heart Rate Baseline: 150 Monitor Accelerations: Present Monitor Decelerations: Episodic, Late and Variable Monitor Variability: Moderate Assessment and Plan Assessment: active labor Plan: continuous present management Comments: New Cat II tracing with advancing descent, appropriately response to standard intrauterine resuscitation measures with adequate intervening variability forebag ruptured, noted asynclitism - peanut ball, frequent position changes <Yael Swift MD - Last Filed: 06/04/24 07:10> Assessment and Plan Comments: New Cat II tracing with advancing descent, appropriately response to standard intrauterine resuscitation measures with adequate intervening variability forebag ruptured, noted asynclitism - peanut ball, frequent position changes anticipate vaginal delivery
[2024-06-04] MEDS: ONDANSETRON 4 MG/2 ML INJ IV (08:33)
--- NOTE | 2024-06-04 09:24 | P.PN_ITS ---
Subjective Subjective Interval history: See prior anesthesia notes. Pt was initially comfortable after epidural replacement this morning. Has now requested two boluses, one given by Loree Key at 08:45 (fentanyl 100 mcg + bupivacaine 0.25% 5 ml). At 09:21, I gave pt a bolus of 2% lidocaine 10 ml via epidural. Pump rate is 13 ml/hr. Pt moving BLE well, 10 cm now but needs to labor down. Objective Labs 06/03/24 13:35 06/03/24 13:35 Labs: Laboratory Results - last 24 hr 06/03/24 06/03/24 06/03/24 13:35 13:35 13:35 WBC 14.2 H 14.3 H RBC 4.45 4.47 Hgb 12.0 Hct MCV MCH MCHC RDW Plt Count Neut % (Auto) Lymph % (Auto) [place] % (Auto) Eos % (Auto) Baso % (Auto) Neut # (Auto) Lymph # (Auto) [place] # (Auto) Eos # (Auto) Baso # (Auto) Sodium Potassium Chloride Carbon Dioxide BUN Creatinine Estimated GFR BUN/Creatinine Ratio Glucose Uric Acid Calcium Total Bilirubin AST ALT Alkaline Phosphatase Total Protein Albumin Globulin Albumin/Globulin Ratio Blood Type Antibody Screen 06/03/24 06/03/24 06/03/24 13:35 13:35 13:35 WBC RBC Hgb 11.9 L Hct 36.1 36.5 MCV 81.1 81.6 MCH 26.8 MCHC RDW Plt Count Neut % (Auto) Lymph % (Auto) [place] % (Auto) Eos % (Auto) Baso % (Auto) Neut # (Auto) Lymph # (Auto) [place] # (Auto) Eos # (Auto) Baso # (Auto) Sodium Potassium Chloride Carbon Dioxide BUN Creatinine Estimated GFR BUN/Creatinine Ratio Glucose Uric Acid Calcium Total Bilirubin AST ALT Alkaline Phosphatase Total Protein Albumin Globulin Albumin/Globulin Ratio Blood Type Antibody Screen 06/03/24 06/03/24 06/03/24 13:35 13:35 13:35 WBC RBC Hgb Hct MCV MCH 26.7 MCHC 33.1 32.7 RDW 14.5 14.4 Plt Count 256 Neut % (Auto) Lymph % (Auto) [place] % (Auto) Eos % (Auto) Baso % (Auto) Neut # (Auto) Lymph # (Auto) [place] # (Auto) Eos # (Auto) Baso # (Auto) Sodium Potassium Chloride Carbon Dioxide BUN Creatinine Estimated GFR BUN/Creatinine Ratio Glucose Uric Acid Calcium Total Bilirubin AST ALT Alkaline Phosphatase Total Protein Albumin Globulin Albumin/Globulin Ratio Blood Type Antibody Screen 06/03/24 06/03/24 06/03/24 13:35 13:35 13:35 WBC RBC Hgb Hct MCV MCH MCHC RDW Plt Count 252 Neut % (Auto) 68.8 68.5 Lymph % (Auto) 23.5 L 23.8 L [place] % (Auto) 6.9 Eos % (Auto) Baso % (Auto) Neut # (Auto) Lymph # (Auto) [place] # (Auto) Eos # (Auto) Baso # (Auto) Sodium Potassium Chloride Carbon Dioxide BUN Creatinine Estimated GFR BUN/Creatinine Ratio Glucose Uric Acid Calcium Total Bilirubin AST ALT Alkaline Phosphatase Total Protein Albumin Globulin Albumin/Globulin Ratio Blood Type Antibody Screen 06/03/24 06/03/24 06/03/24 13:35 13:35 13:35 WBC RBC Hgb Hct MCV MCH MCHC RDW Plt Count Neut % (Auto) Lymph % (Auto) [place] % (Auto) 6.7 Eos % (Auto) 0.5 L 0.6 L Baso % (Auto) 0.3 0.4 Neut # (Auto) 9800 H Lymph # (Auto) [place] # (Auto) Eos # (Auto) Baso # (Auto) Sodium Potassium Chloride Carbon Dioxide BUN Creatinine Estimated GFR BUN/Creatinine Ratio Glucose Uric Acid Calcium Total Bilirubin AST ALT Alkaline Phosphatase Total Protein Albumin Globulin Albumin/Globulin Ratio Blood Type Antibody Screen 06/03/24 06/03/24 06/03/24 13:35 13:35 13:35 WBC RBC Hgb Hct MCV MCH MCHC RDW Plt Count Neut % (Auto) Lymph % (Auto) [place] % (Auto) Eos % (Auto) Baso % (Auto) Neut # (Auto) 9800 H Lymph # (Auto) 3300 3400 [place] # (Auto) 1000 H 1000 H Eos # (Auto) 100 Baso # (Auto) Sodium Potassium Chloride Carbon Dioxide BUN Creatinine Estimated GFR BUN/Creatinine Ratio Glucose Uric Acid Calcium Total Bilirubin AST ALT Alkaline Phosphatase Total Protein Albumin Globulin Albumin/Globulin Ratio Blood Type Antibody Screen 06/03/24 06/03/24 06/03/24 13:35 13:35 13:35 WBC RBC Hgb Hct MCV MCH MCHC RDW Plt Count Neut % (Auto) Lymph % (Auto) [place] % (Auto) Eos % (Auto) Baso % (Auto) Neut # (Auto) Lymph # (Auto) [place] # (Auto) Eos # (Auto) 100 Baso # (Auto) 0 100 Sodium 135 L Potassium 3.9 Chloride 109 H Carbon Dioxide 19 L BUN 7 7 Creatinine 0.58 Estimated GFR BUN/Creatinine Ratio Glucose Uric Acid Calcium Total Bilirubin AST ALT Alkaline Phosphatase Total Protein Albumin Globulin Albumin/Globulin Ratio Blood Type Antibody Screen 06/03/24 06/03/24 06/03/24 13:35 13:35 13:35 WBC RBC Hgb Hct MCV MCH MCHC RDW Plt Count Neut % (Auto) Lymph % (Auto) [place] % (Auto) Eos % (Auto) Baso % (Auto) Neut # (Auto) Lymph # (Auto) [place] # (Auto) Eos # (Auto) Baso # (Auto) Sodium Potassium Chloride Carbon Dioxide BUN Creatinine 0.58 Estimated GFR > 60 > 60 BUN/Creatinine Ratio 12.1 12.1 Glucose 76 Uric Acid 6.2 Calcium 9.2 Total Bilirubin 0.5 AST 20 ALT Alkaline Phosphatase Total Protein Albumin Globulin Albumin/Globulin Ratio Blood Type Antibody Screen 06/03/24 13:35 WBC RBC Hgb Hct MCV MCH MCHC RDW Plt Count Neut % (Auto) Lymph % (Auto) [place] % (Auto) Eos % (Auto) Baso % (Auto) Neut # (Auto) Lymph # (Auto) [place] # (Auto) Eos # (Auto) Baso # (Auto) Sodium Potassium Chloride Carbon Dioxide BUN Creatinine Estimated GFR BUN/Creatinine Ratio Glucose Uric Acid Calcium Total Bilirubin AST 26 ALT 11 Alkaline Phosphatase 151 H Total Protein 6.9 Albumin 3.7 Globulin 3.2 Albumin/Globulin Ratio 1.2 Blood Type O Positive Antibody Screen Negative REPLACED [facility] Medical History (Updated 05/28/24 @ 11:54 by Martha Oliva DO) Anxiety Migraine without aura Leg fracture (~2004) Lipoma (~2019) Surgical History (Updated 10/23/23 @ 11:07 by Yulissa Rose, JAIDA) History of tonsillectomy [place] teeth extracted Family History (Updated 10/23/23 @ 11:17 by Yulissa Rose, JAIDA) Mother Recurrent strokes Skin cancer Heart murmur Hyperlipidemia Depression Diverticulitis Grandmother Skin cancer Breast cancer Bladder cancer Uterine cancer Lung cancer Smoker H/O carotid endarterectomy Grandfather Diabetes mellitus Colon cancer Father Hyperlipidemia Depression Anxiety Grandmother Stomach cancer Smoker Depression Anxiety Sister Congenital heart defect Grandfather Anxiety Depression Social History marital status: unmarried,living together household members: significant other lives independently: Yes caregiver/support person: No housing: apartment pets and animals: No education level: high school 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 occupational 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 ) special diane needs: No travel history: over 6 months ago seatbelt use: always water heater temp set < 120 deg: Yes working smoke detector in home: Yes fire extinguisher in home: No (one not far from front door outside) carbon monox detector in home: Yes firearms in home: Yes firearms unloaded and locked: Yes do you feel safe at home: Yes Smoking Status: Former smoker second hand exposure: No (s/o also quit when pt found out about ) alcohol intake: former (occasionally when not ) substance use type: does not use during the past year weight has: remained stable well-balanced diet: rarely or never daily servings fruits/ve-1 caffeine: Yes (aware of 200mg limit) Type(s) of exercise: weight lifting Assessment & Plan Time-Based Coding :: [TOTAL MINUTES] spent with patient and on the chart (including review of chart, obtaining history, exam, reviewing outside data, placing orders, documenting exam and treatment plan, and counseling patient) on [DATE].
--- NOTE | 2024-06-04 09:52 | PM.PN.1 ---
Subjective Subjective Date Patient Seen: 06/04/24 Time Patient Seen: 08:45 Interval history: Pt moaning in pain Objective ECG Impression: 5cc 0.25% marcaine and 100cg fentanyl given as epidural bolus @0845 Labs 06/03/24 13:35 06/03/24 13:35 Labs: Laboratory Results - last 24 hr 06/03/24 06/03/24 06/03/24 13:35 13:35 13:35 WBC 14.2 H 14.3 H RBC 4.45 4.47 Hgb 12.0 Hct MCV MCH MCHC RDW Plt Count Neut % (Auto) Lymph % (Auto) [place] % (Auto) Eos % (Auto) Baso % (Auto) Neut # (Auto) Lymph # (Auto) [place] # (Auto) Eos # (Auto) Baso # (Auto) Sodium Potassium Chloride Carbon Dioxide BUN Creatinine Estimated GFR BUN/Creatinine Ratio Glucose Uric Acid Calcium Total Bilirubin AST ALT Alkaline Phosphatase Total Protein Albumin Globulin Albumin/Globulin Ratio Blood Type Antibody Screen 06/03/24 06/03/24 06/03/24 13:35 13:35 13:35 WBC RBC Hgb 11.9 L Hct 36.1 36.5 MCV 81.1 81.6 MCH 26.8 MCHC RDW Plt Count Neut % (Auto) Lymph % (Auto) [place] % (Auto) Eos % (Auto) Baso % (Auto) Neut # (Auto) Lymph # (Auto) [place] # (Auto) Eos # (Auto) Baso # (Auto) Sodium Potassium Chloride Carbon Dioxide BUN Creatinine Estimated GFR BUN/Creatinine Ratio Glucose Uric Acid Calcium Total Bilirubin AST ALT Alkaline Phosphatase Total Protein Albumin Globulin Albumin/Globulin Ratio Blood Type Antibody Screen 06/03/24 06/03/24 06/03/24 13:35 13:35 13:35 WBC RBC Hgb Hct MCV MCH 26.7 MCHC 33.1 32.7 RDW 14.5 14.4 Plt Count 256 Neut % (Auto) Lymph % (Auto) [place] % (Auto) Eos % (Auto) Baso % (Auto) Neut # (Auto) Lymph # (Auto) [place] # (Auto) Eos # (Auto) Baso # (Auto) Sodium Potassium Chloride Carbon Dioxide BUN Creatinine Estimated GFR BUN/Creatinine Ratio Glucose Uric Acid Calcium Total Bilirubin AST ALT Alkaline Phosphatase Total Protein Albumin Globulin Albumin/Globulin Ratio Blood Type Antibody Screen 06/03/24 06/03/24 06/03/24 13:35 13:35 13:35 WBC RBC Hgb Hct MCV MCH MCHC RDW Plt Count 252 Neut % (Auto) 68.8 68.5 Lymph % (Auto) 23.5 L 23.8 L [place] % (Auto) 6.9 Eos % (Auto) Baso % (Auto) Neut # (Auto) Lymph # (Auto) [place] # (Auto) Eos # (Auto) Baso # (Auto) Sodium Potassium Chloride Carbon Dioxide BUN Creatinine Estimated GFR BUN/Creatinine Ratio Glucose Uric Acid Calcium Total Bilirubin AST ALT Alkaline Phosphatase Total Protein Albumin Globulin Albumin/Globulin Ratio Blood Type Antibody Screen 06/03/24 06/03/24 06/03/24 13:35 13:35 13:35 WBC RBC Hgb Hct MCV MCH MCHC RDW Plt Count Neut % (Auto) Lymph % (Auto) [place] % (Auto) 6.7 Eos % (Auto) 0.5 L 0.6 L Baso % (Auto) 0.3 0.4 Neut # (Auto) 9800 H Lymph # (Auto) [place] # (Auto) Eos # (Auto) Baso # (Auto) Sodium Potassium Chloride Carbon Dioxide BUN Creatinine Estimated GFR BUN/Creatinine Ratio Glucose Uric Acid Calcium Total Bilirubin AST ALT Alkaline Phosphatase Total Protein Albumin Globulin Albumin/Globulin Ratio Blood Type Antibody Screen 06/03/24 06/03/24 06/03/24 13:35 13:35 13:35 WBC RBC Hgb Hct MCV MCH MCHC RDW Plt Count Neut % (Auto) Lymph % (Auto) [place] % (Auto) Eos % (Auto) Baso % (Auto) Neut # (Auto) 9800 H Lymph # (Auto) 3300 3400 [place] # (Auto) 1000 H 1000 H Eos # (Auto) 100 Baso # (Auto) Sodium Potassium Chloride Carbon Dioxide BUN Creatinine Estimated GFR BUN/Creatinine Ratio Glucose Uric Acid Calcium Total Bilirubin AST ALT Alkaline Phosphatase Total Protein Albumin Globulin Albumin/Globulin Ratio Blood Type Antibody Screen 06/03/24 06/03/24 06/03/24 13:35 13:35 13:35 WBC RBC Hgb Hct MCV MCH MCHC RDW Plt Count Neut % (Auto) Lymph % (Auto) [place] % (Auto) Eos % (Auto) Baso % (Auto) Neut # (Auto) Lymph # (Auto) [place] # (Auto) Eos # (Auto) 100 Baso # (Auto) 0 100 Sodium 135 L Potassium 3.9 Chloride 109 H Carbon Dioxide 19 L BUN 7 7 Creatinine 0.58 Estimated GFR BUN/Creatinine Ratio Glucose Uric Acid Calcium Total Bilirubin AST ALT Alkaline Phosphatase Total Protein Albumin Globulin Albumin/Globulin Ratio Blood Type Antibody Screen 06/03/24 06/03/24 06/03/24 13:35 13:35 13:35 WBC RBC Hgb Hct MCV MCH MCHC RDW Plt Count Neut % (Auto) Lymph % (Auto) [place] % (Auto) Eos % (Auto) Baso % (Auto) Neut # (Auto) Lymph # (Auto) [place] # (Auto) Eos # (Auto) Baso # (Auto) Sodium Potassium Chloride Carbon Dioxide BUN Creatinine 0.58 Estimated GFR > 60 > 60 BUN/Creatinine Ratio 12.1 12.1 Glucose 76 Uric Acid 6.2 Calcium 9.2 Total Bilirubin 0.5 AST 20 ALT Alkaline Phosphatase Total Protein Albumin Globulin Albumin/Globulin Ratio Blood Type Antibody Screen 06/03/24 13:35 WBC RBC Hgb Hct MCV MCH MCHC RDW Plt Count Neut % (Auto) Lymph % (Auto) [place] % (Auto) Eos % (Auto) Baso % (Auto) Neut # (Auto) Lymph # (Auto) [place] # (Auto) Eos # (Auto) Baso # (Auto) Sodium Potassium Chloride Carbon Dioxide BUN Creatinine Estimated GFR BUN/Creatinine Ratio Glucose Uric Acid Calcium Total Bilirubin AST 26 ALT 11 Alkaline Phosphatase 151 H Total Protein 6.9 Albumin 3.7 Globulin 3.2 Albumin/Globulin Ratio 1.2 Blood Type O Positive Antibody Screen Negative [facility] Medical History (Updated 05/28/24 @ 11:54 by Martha Oliva DO) Anxiety Migraine without aura Leg fracture (~2004) Lipoma (~2018) Surgical History (Updated 10/23/23 @ 11:07 by Yulissa Rose RN) History of tonsillectomy [place] teeth extracted Family History (Updated 10/23/23 @ 11:17 by Yulissa Rose RN) Mother Recurrent strokes Skin cancer Heart murmur Hyperlipidemia Depression Diverticulitis Grandmother Skin cancer Breast cancer Bladder cancer Uterine cancer Lung cancer Smoker H/O carotid endarterectomy Grandfather Diabetes mellitus Colon cancer Father Hyperlipidemia Depression Anxiety Grandmother Stomach cancer Smoker Depression Anxiety Sister Congenital heart defect Grandfather Anxiety Depression Social History marital status: unmarried,living together household members: significant other lives independently: Yes caregiver/support person: No housing: apartment pets and animals: No education level: high school 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 occupational 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 ) special diane needs: No travel history: over 6 months ago seatbelt use: always water heater temp set < 120 deg: Yes working smoke detector in home: Yes fire extinguisher in home: No (one not far from front door outside) carbon monox detector in home: Yes firearms in home: Yes firearms unloaded and locked: Yes do you feel safe at home: Yes Smoking Status: Former smoker second hand exposure: No (s/o also quit when pt found out about ) alcohol intake: former (occasionally when not ) substance use type: does not use during the past year weight has: remained stable well-balanced diet: rarely or never daily servings fruits/ve-1 caffeine: Yes (aware of 200mg limit) Type(s) of exercise: weight lifting Assessment & Plan Time-Based Coding :: [TOTAL MINUTES] spent with patient and on the chart (including review of chart, obtaining history, exam, reviewing outside data, placing orders, documenting exam and treatment plan, and counseling patient) on [DATE].
--- NOTE | 2024-06-04 10:06 | PM.OBPNLAB ---
Date/Time Date Patient Seen: 06/04/24 Time Patient Seen: 10:06 Pain Control Pain control: tolerating well and epidural Pelvic Exam Dilation (cm): 10 Effacement (%): 100 station: +1 Amniotic membrane status: Ruptured Contractions Monitor mode: External Contraction frequency (min): 3 Contraction pattern: Regular Contraction intensity: Strong/Firm Status status: Category ll Heart Rate Baseline: 140 Monitor Accelerations: Present Monitor Decelerations: Early and Late Monitor Variability: Moderate Assessment and Plan Assessment: active labor Plan: continuous present management Comments: 28yo at 39+2wks now fully dilated and more comfortable with epidural. -begin pushing efforts -anticipate
[2024-06-04] MEDS: METHYLERGONOVINE 0.2 MG/ML VIAL IM (11:50)
[2024-06-04] MEDS: TRANEXAMIC ACID 1,000 MG in SODIUM CHLORIDE 0.9% 100 ML 600 MG IV (11:54)
--- NOTE | 2024-06-04 11:58 | PM.OBPRVD ---
Labor & Delivery Delivery date: 06/04/24 Delivery monitor: external FHT Route of delivery: L&D Laceration Description: Perineal - 2nd Degree Delivery repair: vicryl Quantitative Blood Loss: 515 Anesthesia Type: Epidural Complications: none Narrative: The patient progressed to C/C/+1 with pitocin augmentation and epidural anesthesia. After approximately 1.5hrs of maternal pushing efforts, the infant delivered in OA position and restituted LOT. The anterior shoulder delivered with gentle downward pressure. The posterior shoulder and rest of body delivered with ease. The cord was doubly clamped and cut after a 60sec delay with the infant placed on maternal abdomen. The placenta delivered spontaneously and was intact with a 3-vessel cord. The fundus was noted to be firm with bimanual massage and pitocin. Inspection of the cervix, vagina, and perineum was notable for a 2nd degree perineal laceration. Repair was performed using 3-0 Vicryl in a running fashion. Skin was reapproximated in a running, subcuticular fashion. During the repair, the lower uterine segment was not firm, thus one dose of methergine and 1g of TXA were administered. At the end of the repair, all tissues noted to be hemostatic. All sponges were removed from the vagina. The patient tolerated delivery well and remained in the labor room with the infant at the bedside. [place] Baby 1: Infant gender: Male Presentation: vertex Placenta delivery description: Spontaneous Cord Vessel Description: 3 Vessels score (1 min): 9 score (5 min): 9 weight: 9 lb 14.733 oz Narrative: 4500g Plan for aftercare: Routine care
[2024-06-04] MEDS: LANOLIN OINT 7 GM 1 APPLIC TOP (13:51)
[2024-06-04] MEDS: WITCH HAZEL/GLYCERIN PADS 1 EACH TOP (13:51)
[2024-06-04] MEDS: IBUPROFEN 600 MG TABLET PO ×2 (13:52→20:02)
[2024-06-04] MEDS: DERMOPLAST SPRAY 20% 60 ML 1 SPRAY TOP (13:55)
--- NOTE | 2024-06-04 16:44 | P.PN_ITS ---
Objective Labs 06/03/24 13:35 06/03/24 13:35 [facility] Medical History (Updated 05/28/24 @ 11:54 by Martha Oliva DO) Anxiety Migraine without aura Leg fracture (~2004) Lipoma (~2018) Surgical History (Updated 10/23/23 @ 11:07 by Yulissa Rose RN) History of tonsillectomy [place] teeth extracted Family History (Updated 10/23/23 @ 11:17 by Yulissa Rose RN) Mother Recurrent strokes Skin cancer Heart murmur Hyperlipidemia Depression Diverticulitis Grandmother Skin cancer Breast cancer Bladder cancer Uterine cancer Lung cancer Smoker H/O carotid endarterectomy Grandfather Diabetes mellitus Colon cancer Father Hyperlipidemia Depression Anxiety Grandmother Stomach cancer Smoker Depression Anxiety Sister Congenital heart defect Grandfather Anxiety Depression Social History marital status: unmarried,living together household members: significant other lives independently: Yes caregiver/support person: No housing: apartment pets and animals: No education level: high school 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 occupational 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 ) special diane needs: No travel history: over 6 months ago seatbelt use: always water heater temp set < 120 deg: Yes working smoke detector in home: Yes fire extinguisher in home: No (one not far from front door outside) carbon monox detector in home: Yes firearms in home: Yes firearms unloaded and locked: Yes do you feel safe at home: Yes Smoking Status: Former smoker second hand exposure: No (s/o also quit when pt found out about ) alcohol intake: former (occasionally when not ) substance use type: does not use during the past year weight has: remained stable well-balanced diet: rarely or never daily servings fruits/ve-1 caffeine: Yes (aware of 200mg limit) Type(s) of exercise: weight lifting Assessment & Plan Time-Based Coding :: [TOTAL MINUTES] spent with patient and on the chart (including review of chart, obtaining history, exam, reviewing outside data, placing orders, documenting exam and treatment plan, and counseling patient) on [DATE].
[2024-06-04] MEDS: ACETAMINOPHEN 325 MG TABLET 650 MG PO (20:02)
[2024-06-05] MEDS: ACETAMINOPHEN 325 MG TABLET 650 MG PO (02:04)
[2024-06-05] MEDS: IBUPROFEN 600 MG TABLET PO ×2 (02:04→09:45)
--- NOTE | 2024-06-05 07:54 | PM.OBDS.1 ---
Discharge Providers Provider Date of admission: 06/03/24 12:10 Discharge Date: 06/05/24 Primary care physician: Sonu Bush DO Consults: 06/03/24 13:26 Consult to Anesthesiology Urgent Comment: Consulting Provider: Anesthesiologist Reason for consultation: Epidural 06/05/24 11:57 Consult to Manager Intelligence Routine Comment: Discharge provider: Yael Swift MD Summary Hospital Course Date Patient Seen: 06/05/24 Time Patient Seen: 07:54 Diagnoses: SROM at term, macrosomia; now s/p of LGA LBMI without complication Hospital Course: 28yo G1 admitted to facility at 39w2d following SROM clear fluid prior to arrival. course c/b maternal class 3 obesity, macroscomia without evidence of maternal getstational DM or excessive maternal weight gain. Pt required brief (<3h) period of low-dose pitocin augmentation which was subsequently discontinued. Pt received epidural analgesia and progressed to complete dilation, uncomplicated second stage of LGA male without shoulder dystocia. Pt had an uncomplicated course and requested discharge to home on PPD1 pending clearance per peds. exclusively, declined initiation of contraception; address at routine visit Peripartum Data Delivery Method: Natural Vaginal Laceration Description: Perineal - 2nd Degree complications: none 1: Gender: Male Disposition of : home Discharge Diagnosis (1) Normal vaginal delivery: Status: Acute Status at Discharge Cognitive/behavioral status at discharge: oriented Functional status at discharge: independent ambulation Overall status at discharge: patient is back to baseline Time Spent with Patient Time attestation: Total time spent providing and/or coordinating discharge services: Time spent: Less than 30 minutes Objective Labs 06/03/24 13:35 06/03/24 13:35 Exam Vital Signs (past 8 hours): BP 113/66 HR 72 RR 16 Tc 97.3 Const General: cooperative, healthy appearing and comfortable Nutritional Appearance: obese Orientation: alert, awake and oriented x3 Limitations: mental status not altered Resp Effort & Inspection: normal respiratory effort Cardio Pulses: normal peripheral pulses GI Other: fundus firm << Umb Other: deferred Skin General: no rashes or lesions noted Neuro General: patient alert, patient awake and patient oriented x3 Extrem General: normal to inspection Psych Mental Status: mental status grossly normal Discharge Plan Discharge Plan Patient Disposition: Home Discharge orders & Medications Prescriptions: New acetaminophen 325 mg Tablet 650 mg PO Q6HR PRN (Reason: Pain, Mild (1-3)) Qty: 30 0RF Dermoplast (with menthol) 20-0.5 % Aerosol 1 spray topical Q1HR PRN (Reason: Pain, Moderate (4-6)) Qty: 1 0RF ibuprofen 600 mg Tablet 600 mg PO Q6HR PRN (Reason: Pain, Mild (1-3)) Qty: 30 0RF Continued PNV cmb#[id number]-ferrous fumarate-FA [ Multivitamins] 28 mg iron- 800 mcg tablet 1 tab PO DAILY ferrous sulfate [Feosol] 325 mg (65 mg iron) tablet 325 mg PO DAILY Discontinued (DME) Double Electric Breast Pump See Rx Instructions .ROUTE .MEDSUPPLY Qty: 1 0RF Rx Instructions: Breast pump and supplies calcium carbonate [Calcium 600] 600 mg calcium (1,500 mg) tablet 600 mg PO DAILY aspirin 81 mg tablet,delayed release (DR/EC) 81 mg PO DAILY Qty: 90 3RF docusate sodium [Colace] 100 mg capsule 100 mg PO DAILY Qty: 90 3RF Follow up/Referrals: Sonu Bush DO [Primary Care Provider] - Visit Report/Discharge Packet Stand Alone Forms: Patient Portal/API, Stroke Signs & Symptoms Discharge Data Primary Care Provider: Sonu Bush
[2024-06-05] MEDS: DOCUSATE 100 MG CAPSULE PO (09:43)
[2024-06-05] MEDS: PRENATAL VIT,CALC/IRON/FOLIC 1 TABLET 1 TAB PO (09:43)
[2024-06-05 09:45] VITALS: TEMP 36.6
[2024-06-05 14:58] VITALS: BP 128/80; PULSE 76; RESP 18; TEMP 36.6
== END 2024-06-05 19:10 | disposition home or self-care (01) | DRG 807 ==
PROVIDERS: Obstetrics & Gynecology; Admitting Provider Student in an Organized Health Care Education/Training Program; PCP Family Medicine; Referring Provider Student in an Organized Health Care Education/Training Program; Visit Provider Student in an Organized Health Care Education/Training Program
DX: O42.92 Full-term premature rupture of membranes, unspecified as to length of time between rupture and onset of labor (principal); Z37.0 Single live birth; O99.214 Obesity complicating childbirth; E66.01 Morbid (severe) obesity due to excess calories; O76 Abnormality in fetal heart rate and rhythm complicating labor and delivery; O70.1 Second degree perineal laceration during delivery; Z3A.39 39 weeks gestation of pregnancy; O36.63X0 Maternal care for excessive fetal growth, third trimester, not applicable or unspecified
CPT/HCPCS: 36415; 59050; 80053; 84112; 84450; 84550; 85025; 86850; 86900; 86901; G0379; J2210; J2405; J2590; J3010